=== PATIENT | female | born 1965 | race Caucasian/White ===

== ENCOUNTER 2020-08-14 09:39 | Emergency (ER) | payer OTHER ==
--- NOTE | 2020-08-14 09:48 | ERPHSYRPT ---
- History of Present Illness Time Seen by Provider: 08/14/20 09:48 Historian: patient Exam Limitations: no limitations Physician History: This is a overweight 55-year-old white female who has had a colonoscopy in the distant past and told that she has some diverticula present. Patient has had a bilateral tubal ligation as well as a cholecystectomy in the past. Approx imately 3 weeks ago, the patient noticed intermittent left flank pain which is now radiated around anteriorly to the left lower quadrant. In the last week she has had several episodes of diarrheal stools. Patient is now nauseated and having vomiting present. Patient states she is never had anything like this in the past. Patient denies chest pain she has no shortness of breath. Timing/Duration: week(s) (2-3), intermittent, worse Quality: sharpness Abdominal Pain Onset Location: LLQ, flank (Left) Pain Radiation: LLQ Severity of Pain-Max: moderate Severity of Pain-Current: moderate Modifying Factors: Improves With: vomiting Associated Symptoms: diarrhea, nausea, vomiting Previous symptoms: no prior history Allergies/Adverse Reactions: No Known Drug Allergies Allergy (Unverified 08/14/20 09:49) Home Medications: Aripiprazole [Abilify] 1 tab PO DAILY 08/14/20 [History] Cetirizine HCl [Zyrtec] 1 tab PO DAILY 08/14/20 [History] Omeprazole 1 tab PO DAILY 08/14/20 [History] Venlafaxine HCl [Effexor] 1 tab PO DAILY 08/14/20 [History] Travel Risk - International Travel Have you traveled outside of the country in past 3 weeks: No - Coronavirus Screening Are you exhibiting any of the following symptoms?: Yes Symptoms: Vomiting/Diarrhea Close contact with a COVID-19 positive Pt in past 14-21 Days: No - Review of Systems Constitutional: No Symptoms Eyes: No Symptoms Ears, Nose, & Throat: No Symptoms Respiratory: No Symptoms Cardiac: No Symptoms Abdominal/Gastrointestinal: Abdominal Pain (Left lower quadrant), Nausea, Vomiting, Diarrhea Genitourinary Symptoms: Flank Pain (Left) Musculoskeletal: No Symptoms Skin: No Symptoms Neurological: No Symptoms Psychological: No Symptoms Endocrine: No Symptoms Hematologic/Lymphatic: No Symptoms Immunological/Allergic: No Symptoms All Other Systems: Reviewed and Negative - Past Medical History Pertinent Past Medical History: No Neurological History: No Pertinent History ENT History: No Pertinent History Cardiac History: No Pertinent History Respiratory History: No Pertinent History Endocrine Medical History: No Pertinent History Musculoskeletal History: No Pertinent History GI Medical History: Other (Diverticula) History: No Pertinent History Psycho-Social History: No Pertinent History Female Reproductive Disorders: No Pertinent History - Past Surgical History Past Surgical History: Yes Gastrointestinal: Cholecystectomy Female Surgical History: Tubal Ligation - Nursing Vital Signs Nursing Vital Signs: Initial Vital Signs Temperature 99.1 F 08/14/20 09:51 Pulse Rate 104 H 08/14/20 09:51 Respiratory Rate 18 08/14/20 09:51 Blood Pressure 143/88 08/14/20 09:51 O2 Sat by Pulse Oximetry 94 L 08/14/20 09:51 Pain Scale Pain Intensity 0 - Physical Exam General Appearance: mild distress, alert, anxiety, obese Eye Exam: PERRL/EOMI, eyes nml inspection Ears, Nose, Throat Exam: normal ENT inspection, moist mucous membranes Neck Exam: normal inspection, non-tender, supple, full range of motion Respiratory Exam: normal breath sounds, lungs clear, airway intact, No chest tenderness, No respiratory distress Cardiovascular Exam: regular rate/rhythm, normal heart sounds, normal peripheral pulses Gastrointestinal/Abdomen Exam: soft, normal bowel sounds, tenderness (Left lower quadrant), guarding, No rebound Pelvic Exam: not done Rectal Exam: not done Back Exam: normal inspection, normal range of motion, CVA tenderness (Left), No vertebral tenderness Extremity Exam: normal inspection, normal range of motion, pelvis stable Neurologic Exam: alert, oriented x 3, cooperative, circular knitter II-XII nml as tested, nml cerebellar function, nml station & gait, sensation nml Skin Exam: normal color, warm, dry Lymphatic Exam: No adenopathy SpO2 Interpretation: normal O2 Delivery: Room Air Ordered Tests: Active Orders 24 hr Category Date Time Status IV Insertion STAT Care 08/14/20 10:01 Active ABDOMEN AND PELVIS W/0 CONTRAS [CT] Stat Exams 08/14/20 10:01 Completed AMYLASE Stat Lab 08/14/20 10:14 Completed CBC W DIFF Stat Lab 08/14/20 10:14 Completed CMP Stat Lab 08/14/20 10:14 Completed CULTURE,URINE Stat Lab 08/14/20 10:05 Received LIPASE Stat Lab 08/14/20 10:14 Completed Lactic Acid Stat Lab 08/14/20 10:01 Completed UA W/RFX UR CULTURE Stat Lab 08/14/20 10:05 Completed Medication Summary Discontinued Medications Generic Name Dose Route Start Last Admin Trade Name Juli PRN Reason Stop Dose Admin Hydromorphone HCl 1 mg 08/14/20 10:01 08/14/20 10:13 Hydromorphone 1 Mg/Ml Injection IV 08/14/20 10:02 1 mg STAT ONE Administration Hydromorphone HCl Confirm 08/14/20 10:07 Hydromorphone 1 Mg/Ml Injection Administered 08/14/20 10:08 Dose 1 mg .ROUTE .STK-MED ONE Sodium Chloride 1,000 mls @ 999 mls/hr 08/14/20 10:01 08/14/20 10:10 Sodium Chloride 0.9% 1000 Ml IV 08/14/20 11:01 999 mls/hr .Q1H1M STA Administration Sodium Chloride Confirm 08/14/20 10:07 Sodium Chloride 0.9% 1000 Ml Administered 08/14/20 10:08 Dose 1,000 mls @ ud .ROUTE .STK-MED ONE Ondansetron HCl 4 mg 08/14/20 10:01 08/14/20 10:10 Zofran 4 Mg/2 Ml Vial IV 08/14/20 10:02 4 mg STAT ONE Administration Ondansetron HCl Confirm 08/14/20 10:07 Zofran 4 Mg/2 Ml Vial Administered 08/14/20 10:08 Dose 4 mg .ROUTE .STK-MED ONE Lab/Rad Data: Laboratory Result Diagrams 08/14/20 10:14 08/14/20 10:14 Laboratory Results 08/14/20 08/14/20 08/14/20 Range/Units 10:14 10:14 10:05 WBC 4.1 (4.0-10.5) K/mm3 RBC 4.34 (4.1-5.4) M/mm3 Hgb 12.8 (12.0-16.0) gm/dl Hct 40.8 (35-47) % MCV 94.0 (78-100) fl MCH 29.5 (26-32) pg MCHC 31.4 L (32-36) g/dl RDW 12.7 (11.5-14.0) % Plt Count 154 (150-450) K/mm3 MPV 11.1 H (7.5-11.0) fl Gran % 69.2 H (36.0-66.0) % Eos # (Auto) 0 (0-0.5) Absolute Lymphs (auto) 0.95 L (1.0-4.6) Absolute Monos (auto) 0.32 (0.0-1.3) Lymphocytes % 22.9 L (24.0-44.0) % Monocytes % 7.7 (0.0-12.0) % Eosinophils % 0.0 (0.00-5.0) % Basophils % 0.2 (0.0-0.4) % Absolute Granulocytes 2.86 (1.4-6.9) Basophils # 0.01 (0-0.4) Sodium 139 (137-145) mmol/L Potassium 3.7 (3.5-5.1) mmol/L Chloride 103 (98-107) mmol/L Carbon Dioxide 28 (22-30) mmol/L Anion Gap 11.2 (5-15) MEQ/L BUN 13 (7-17) mg/dL Creatinine 0.88 (0.52-1.04) mg/dL Estimated GFR > 60.0 ML/MIN Glucose 105 (74-106) mg/dL Lactic Acid (0.4-2.0) Calcium 8.7 (8.4-10.2) mg/dL Total Bilirubin 0.90 (0.2-1.3) mg/dL AST 51 H (14-36) U/L ALT 29 (0-35) U/L Alkaline Phosphatase 153 H (38-126) U/L Serum Total Protein 6.9 (6.3-8.2) g/dL Albumin 4.1 (3.5-5.0) g/dL Amylase 63 (30-110) U/L Lipase 157 (23-300) U/L Urine Color MAY (YELLOW) Urine Appearance CLOUDY (CLEAR) Urine pH 5.0 (5-6) Ur Specific Sharon 1.025 (1.005-1.025) Urine Protein 100 (Negative) Urine Ketones SMALL (NEGATIVE) Urine Blood NEGATIVE (0-5) Rogerio/ul Urine Nitrite NEGATIVE (NEGATIVE) Urine Bilirubin NEGATIVE (NEGATIVE) Urine Urobilinogen 2 (0-1) mg/dL Ur Leukocyte Esterase NEGATIVE (NEGATIVE) Urine WBC (Auto) 11-15 (0-5) /HPF Urine RBC (Auto) 0-2 (0-2) /HPF U Epithel Cells (Auto) MODERATE (FEW) /HPF Urine Bacteria (Auto) MANY (NEGATIVE) /HPF Amorphous Crystals FEW (NEGATIVE) /HPF Urine Mucus (Auto) MANY (NEGATIVE) /HPF Urine Culture Reflexed YES (NO) Urine Glucose NEGATIVE (NEGATIVE) mg/dL 08/14/20 Range/Units 10:01 WBC (4.0-10.5) K/mm3 RBC (4.1-5.4) M/mm3 Hgb (12.0-16.0) gm/dl Hct (35-47) % MCV (78-100) fl MCH (26-32) pg MCHC (32-36) g/dl RDW (11.5-14.0) % Plt Count (150-450) K/mm3 MPV (7.5-11.0) fl Gran % (36.0-66.0) % Eos # (Auto) (0-0.5) Absolute Lymphs (auto) (1.0-4.6) Absolute Monos (auto) (0.0-1.3) Lymphocytes % (24.0-44.0) % Monocytes % (0.0-12.0) % Eosinophils % (0.00-5.0) % Basophils % (0.0-0.4) % Absolute Granulocytes (1.4-6.9) Basophils # (0-0.4) Sodium (137-145) mmol/L Potassium (3.5-5.1) mmol/L Chloride (98-107) mmol/L Carbon Dioxide (22-30) mmol/L Anion Gap (5-15) MEQ/L BUN (7-17) mg/dL Creatinine (0.52-1.04) mg/dL Estimated GFR ML/MIN Glucose (74-106) mg/dL Lactic Acid 1.0 (0.4-2.0) Calcium (8.4-10.2) mg/dL Total Bilirubin (0.2-1.3) mg/dL AST (14-36) U/L ALT (0-35) U/L Alkaline Phosphatase (38-126) U/L Serum Total Protein (6.3-8.2) g/dL Albumin (3.5-5.0) g/dL Amylase (30-110) U/L Lipase (23-300) U/L Urine Color (YELLOW) Urine Appearance (CLEAR) Urine pH (5-6) Ur Specific Sharon (1.005-1.025) Urine Protein (Negative) Urine Ketones (NEGATIVE) Urine Blood (0-5) Rogerio/ul Urine Nitrite (NEGATIVE) Urine Bilirubin (NEGATIVE) Urine Urobilinogen (0-1) mg/dL Ur Leukocyte Esterase (NEGATIVE) Urine WBC (Auto) (0-5) /HPF Urine RBC (Auto) (0-2) /HPF U Epithel Cells (Auto) (FEW) /HPF Urine Bacteria (Auto) (NEGATIVE) /HPF Amorphous Crystals (NEGATIVE) /HPF Urine Mucus (Auto) (NEGATIVE) /HPF Urine Culture Reflexed (NO) Urine Glucose (NEGATIVE) mg/dL - Progress Progress: improved, pain not gone completely, re-examined Progress Note: 08/14/20 11:25 Medical decision making: This patient symptomatically has mild acute diverticulitis. She does have a history of descending and sigmoid colon diver particular disease. On the CAT scan it shows that this but does not show acute diverticulitis. However she is having pain in this area and in the last week she has had significant amount of diarrhea. Her urinalysis shows a significant amount of bacteria but the nitrite and leukocyte esterase are negative. I am not certain that this is actually a clean specimen. However, I feel we can treat her with Cipro and Flagyl as well as 2 days of [place] pain medication. I think this will relieve her symptoms. She can follow-up with her primary care physician/dope heater and make arrangements for repeat colonoscopy. Counseled pt/family regarding: lab results, diagnosis, need for follow-up, rad results - Departure Departure Disposition: Home Clinical Impression: Left sided abdominal pain, Diverticular disease, Diarrhea Condition: Stable Critical Care Time: No Referrals: JACKY XIONG MD [Primary Care Provider] - Additional Instructions: Drink plenty of fluids. Follow-up with your primary care physician for further management including gastroenterology consultation if indicated to repeat colonoscopy. Prescriptions: Hydrocodone/APAP 5-325 Tab^^^ [[place] 5-325 Tablet^^^] 1 tab PO Q8H PRN PRN #6 tablet MDD 3 PRN Reason: Pain Ciprofloxacin [Cipro 500 MG] 500 mg PO BID #14 tablet Metronidazole 500 mg [Flagyl 500 MG] 500 mg PO TID #21 tablet
[2020-08-14] MEDS ORDERED: Hydromorphone 1 mg/ml Injection IV ONE (10:01)
[2020-08-14] MEDS ORDERED: Zofran 4 MG/2 ML VIAL IV ONE (10:01)
[2020-08-14] MEDS ORDERED: Sodium Chloride 0.9% 1000 ML 1,000 ML IV STA (10:01)
[2020-08-14] MEDS ORDERED: Hydromorphone 1 mg/ml Injection ONE (10:07)
[2020-08-14] MEDS ORDERED: Zofran 4 MG/2 ML VIAL ONE (10:07)
[2020-08-14] MEDS ORDERED: Sodium Chloride 0.9% 1000 ML 1,000 ML ONE (10:07)
[2020-08-14 10:15] LABS: Absolute Neutrophil Ct (ANC) 2.86 (1.4-6.9); BASOPHIL % 0.2 % (0.0-0.4); Basophil (Absolute #) 0.01 (0-0.4); Eosinophil (Absolute #) 0 (0-0.5); Hematocrit 40.8 % (35-47); Hemoglobin 12.8 gm/dl (12.0-16.0); Lymphocyte (Absolute #) 0.95 (1.0-4.6); Lymphocytes % 22.9 % (24.0-44.0); Mean Corpuscular Hemoglobin 29.5 pg (26-32); Mean Corpuscular Hgb Concent. 31.4 g/dl (32-36); Mean Platelet Volume 11.1 fl (7.5-11.0); Monocyte (Absolute #) 0.32 (0.0-1.3); Monocytes % 7.7 % (0.0-12.0); Neutrophil % 69.2 % (36.0-66.0); Platelet Count 154 K/mm3 (150-450); Red Blood Count 4.34 M/mm3 (4.1-5.4); Red Cell Distribution Width 12.7 % (11.5-14.0); White Blood Count 4.1 K/mm3 (4.0-10.5)
[2020-08-14 10:23] LABS: Amourphous Crystal FEW /HPF (NEGATIVE); Appearance CLOUDY (CLEAR); Bacteria MANY /HPF (NEGATIVE); Bilirubin NEGATIVE (NEGATIVE); Blood NEGATIVE Ery/ul (0-5); Epithelial Cells MODERATE /HPF (FEW); Glucose NEGATIVE (NEGATIVE); Ketones SMALL (NEGATIVE); Leukocyte Esterase NEGATIVE (NEGATIVE); Mucus MANY /HPF (NEGATIVE); Nitrite NEGATIVE (NEGATIVE); Protein,Urine Dip 100 (Negative); RBC 0-2 /HPF (0-2); Specific Gravity 1.025 (1.005-1.025); Urobilinogen 2 mg/dL (0-1)
[2020-08-14 10:28] LABS: ALBUMIN 4.1 g/dL (3.5-5.0); ALKALINE PHOSPHATASE 153 U/L (38-126); AMYLASE 63 U/L (30-110); ANION GAP 11.2 MEQ/L (5-15); BLOOD UREA NITROGEN 13 mg/dL (7-17); CHLORIDE 103 mmol/L (98-107); Calcium 8.7 mg/dL (8.4-10.2); Carbon Dioxide 28 mmol/L (22-30); Creatinine 1 0.88 mg/dL (0.52-1.04); EST GLOMERULAR FILTRATION RATE > 60.0 ML/MIN; Glucose 105 mg/dL (74-106); LIPASE 157 U/L (23-300); Potassium 3.7 mmol/L (3.5-5.1); SGOT/AST 51 U/L (14-36); SGPT/ALT 29 U/L (0-35); SODIUM 139 mmol/L (137-145); Total Protein 6.9 g/dL (6.3-8.2)
--- NOTE | 2020-08-14 11:13 | XRAY ---
Indication: Left pelvic pain. Nausea, vomiting, and diarrhea 3 weeks. Multiple contiguous axial images obtained through the abdomen and pelvis without contrast as ordered. Comparison: None Lung bases demonstrates diffuse bilateral scattered patchy airspace disease without effusion. Heart is not enlarged. Small hiatal hernia. Noncontrasted stomach and bowel loops appear nonobstructed. Normal appendix. Mild scattered descending and sigmoid diverticulosis. No free fluid/air. 3 mm nonobstructing left renal calculus. Incidental cholecystectomy clips and splenomegaly with calcified granulomas. Remaining liver, pancreas, spleen, adrenal glands, kidneys, ureters, bladder, uterus, and aorta appear unremarkable for noncontrast exam. Osseous structures intact with minimal degenerative changes throughout the thoracolumbar spine. Impression: 1. Colonic diverticulosis, small hiatal hernia, nonobstructing left renal micro-calculus, and splenomegaly with calcified granulomas. 2. Incidental diffuse bibasilar airspace disease. Correlate clinically. 3. Remaining CT abdomen/pelvis without contrast exam is negative.
[2020-08-14 11:59] VITALS: BP 118/68; PULSE 89; O2SAT 98
== END 2020-08-14 12:18 | disposition home or self-care (01) ==
LOC: ED 09:39
DX: R10.9 Unspecified abdominal pain (principal); R10.32 Left lower quadrant pain; K57.90 Diverticulosis of intestine, part unspecified, without perforation or abscess without bleeding; R19.7 Diarrhea, unspecified; R11.2 Nausea with vomiting, unspecified; Z79.899 Other long term (current) drug therapy
CPT/HCPCS: 36000; 36415; 74176; 80053; 81001; 82150; 83605; 83690; 85025; 87086; 96360; 96374; 96375; 99284; J1170; J2405